=== PATIENT | male | born 1960 | race Caucasian/White ===

== ENCOUNTER 2018-02-06 15:04 | Emergency (ER) | payer OTHER ==
[2018-02-06] MEDS ORDERED: Alum Hydrox/Mag Hydrox/Simeth 15 ML, Lidocaine 2% 15 ML PO ONE ×2 (16:37)
--- NOTE | 2018-02-06 17:13 | EDM.PDOC ---
<Isaac Fox - Last Filed: 02/06/18 18:08> ED HPI GENERAL MEDICAL PROBLEM - General Chief Complaint: Abdominal Pain Stated Complaint: ABDOMINAL PAIN Time Seen by Provider: 02/06/18 16:00 Source of Information: Reports: Patient, Family History Limitations: Reports: No Limitations - History of Present Illness INITIAL COMMENTS - FREE TEXT/NARRATIVE: 57-year-old male who has had abdominal pain since last evening. The pain started fairly abruptly after eating supper, it is been persistent since with 2 episodes of emesis. He still has no appetite today but no fever. The pain is across the mid to lower abdomen, worse with movement. No radiation to the back. He has not had previous pain like this. He has a history of Pacheco's esophagus , the pain is usually higher in his chest when it's bothering him. This pain feels different. Patient also has a history of a "sports hernia" in the left groin, he has a surgical consultation in a few weeks but that does not seem to be tender at this time. Onset: Sudden (Started rather suddenly after supper last evening roughly 12 hours ago) Location: Reports: Abdomen Severity: Moderate Improves with: Reports: None Worsens with: Reports: Movement Associated Symptoms: Reports: No Other Symptoms - Related Data Allergies Allergy/AdvReac Type Severity Reaction Status Date / Time No Known Allergies Allergy Verified 02/06/18 16:03 Home Meds: Home Meds Omeprazole 1 tab PO DAILY 02/06/18 [History] Past Medical History Gastrointestinal History: Reports: GERD - Past Surgical History GI Surgical History: Reports: Appendectomy, Hernia, Inguinal Social & Family History - Tobacco Use Smoking Status *Q: Never Smoker ED ROS GENERAL - Review of Systems Review Of Systems: See Below Constitutional: Denies: Fever, Chills HEENT: Reports: No Symptoms Respiratory: Denies: Shortness of Breath Cardiovascular: Denies: Chest Pain GI/Abdominal: Reports: Abdominal Pain, Nausea, Vomiting : Reports: No Symptoms Skin: Reports: No Symptoms Neurological: Reports: No Symptoms ED EXAM, GI/ABD - Physical Exam Exam: See Below Exam Limited By: No Limitations General Appearance: Alert, No Apparent Distress Eyes: Bilateral: Normal Appearance Respiratory/Chest: No Respiratory Distress, Lungs Clear Cardiovascular: Regular Rate, Rhythm GI/Abdominal Exam: Soft, Guarding (Mild guarding is presentUmbilical area with mild rebound tenderness. His left inguinal hernia is palpable, easily reducible and is not tender.) Neurological: Alert, Oriented Psychiatric: Normal Affect, Normal Mood Skin Exam: Warm, Dry Course - Vital Signs Last Recorded V/S: Last Vital Signs Temp 98.6 F 02/06/18 16:11 Pulse 60 02/06/18 16:11 Resp 18 02/06/18 16:11 BP 142/77 H 02/06/18 16:11 Pulse Ox 97 02/06/18 16:11 - Orders/Labs/Meds Orders: Active Orders 24 hr Category Date Time Status Nasogastric Tube Management [Gastrointestinal Tube Mgmt Care 02/06/18 19:44 Active ] [RC] ASDIRECTED Abdomen 1V Upright [CR] Stat Exams 02/06/18 20:57 Taken Abdomen Pelvis w Cont [CT] Stat Exams 02/06/18 17:12 Taken Iopamidol [Isovue-300 (61%)] Med 02/06/18 17:30 Active 100 ml IV . DIRECTED Sodium Chloride 0.9% [Normal Saline] 100 ml Med 02/06/18 17:30 Active IV ASDIRECTED Sodium Chloride 0.9% [Saline Flush] Med 02/06/18 17:16 Active 10 ml FLUSH ASDIRECTED PRN Saline Lock Insert [OM.PC] Routine Oth 02/06/18 17:16 Ordered Medication Orders Sodium Chloride (Normal Saline) 100 mls @ 3 mls/sec IV ASDIRECTED ALEXIS Last Admin: 02/06/18 17:46 Dose: 3 mls/sec Iopamidol (Isovue-300 (61%)) 100 ml IV . DIRECTED ALEXIS Last Admin: 02/06/18 17:46 Dose: 100 ml Sodium Chloride (Saline Flush) 10 ml FLUSH ASDIRECTED PRN PRN Reason: Keep Vein Open Last Admin: 02/06/18 20:43 Dose: 10 ml Labs: Laboratory Tests 02/06/18 02/06/18 02/06/18 Range/Units 16:37 16:37 19:50 WBC 11.1 H (4.5-11.0) K/uL RBC 4.47 (4.30-5.90) M/uL Hgb 14.4 (12.0-15.0) g/dL Hct 41.3 (40.0-54.0) % MCV 92 (80-98) fL MCH 32 H (27-31) pg MCHC 35 (32-36) % Plt Count 241 (150-400) K/uL Neut % (Auto) 85 H (36-66) % Lymph % (Auto) 10 L (24-44) % Luna % (Auto) 5 (2-6) % Eos % (Auto) 0 L (2-4) % Baso % (Auto) 0 (0-1) % Sodium 147 (140-148) mmol/L Potassium 4.2 (3.6-5.2) mmol/L Chloride 109 H (100-108) mmol/L Carbon Dioxide 26 (21-32) mmol/L Anion Gap 16.2 H (5.0-14.0) mmol/L BUN 15 (7-18) mg/dL Creatinine 1.1 (0.8-1.3) mg/dL Est Cr Clr Drug Dosing 77.42 mL/min Estimated GFR (MDRD) > 60 (>60) Glucose 95 (74-106) mg/dL Lactic Acid 1.3 (0.4-2.0) mmol/L Calcium 9.0 (8.5-10.1) mg/dL Meds: Medications Generic Name Dose Route Start Last Admin Trade Name Freq PRN Reason Stop Dose Admin Sodium Chloride 100 mls @ 3 mls/sec 02/06/18 17:30 02/06/18 17:46 Normal Saline IV 3 mls/sec ASDIRECTED ALEXIS Administration Iopamidol 100 ml 02/06/18 17:30 02/06/18 17:46 Isovue-300 (61%) IV 100 ml . DIRECTED ALEXIS Administration Sodium Chloride 10 ml 02/06/18 17:16 02/06/18 20:43 Saline Flush FLUSH 10 ml ASDIRECTED PRN Administration Keep Vein Open Discontinued Medications Generic Name Dose Route Start Last Admin Trade Name Freq PRN Reason Stop Dose Admin Al Hydroxide/Mg Hydroxide 15 0 ml 02/06/18 16:37 02/06/18 16:49 ml/ Lidocaine HCl 15 ml PO 02/06/18 16:38 30 ml ONETIME ONE Administration Fentanyl 25 mcg 02/06/18 18:07 02/06/18 18:14 Sublimaze IVPUSH 02/06/18 18:08 25 mcg ONETIME ONE Administration Fentanyl 50 mcg 02/06/18 20:18 02/06/18 20:41 Sublimaze IVPUSH 02/06/18 20:19 50 mcg ONETIME ONE Administration Ondansetron HCl 4 mg 02/06/18 20:18 02/06/18 20:41 Zofran IVPUSH 02/06/18 20:19 4 mg ONETIME ONE Administration - Re-Assessments/Exams Free Text/Narrative Re-Assessment/Exam: 02/06/18 17:21 Patient was given a GI cocktail with no effect. CBC revealed a mildly elevated white count at 11,200, BMP was relatively normal other than a slightly elevated anion gap. A CT of the abdomen and pelvis was then obtained with IV contrast. Departure - Departure Disposition: DC/Tfer to [facility] 02 Clinical Impression: Hiatal hernia - Discharge Information Referrals: PCP,None [Primary Care Provider] - Forms: ED Department Discharge - My Orders Last 24 Hours: My Active Orders 02/06/18 19:44 Nasogastric Tube Management [Gastrointestinal Tube Mgmt] [RC] ASDIRECTED 02/06/18 20:57 Abdomen 1V Upright [CR] Stat - Assessment/Plan Last 24 Hours: My Active Orders 02/06/18 19:44 Nasogastric Tube Management [Gastrointestinal Tube Mgmt] [RC] ASDIRECTED 02/06/18 20:57 Abdomen 1V Upright [CR] Stat <RodrigorBrad - Last Filed: 02/06/18 21:24> Departure - Departure Time of Disposition: 21:24 Condition: Good - Assessment/Plan Plan: Assessment Acuity = acute Site and laterality = large hiatal hernia containing stomach and large bowel Etiology = unclear etiology Manifestations = abdominal pain, nausea, vomiting Location of injury = Home Lab values = CBC, CMP unremarkable lactic acid normal at 1.3 CT scan describes a large hiatal hernia above Plan Called discussed case with Dr. Grijalva cardiothoracic surgeon at the [facility] she kindly accepted the patient in transport he will be transported via EMS ground NG tube is in place further evaluation will start at the emergency department This note was dictated using [employer] voice recognition software please call with any questions on syntax or grammar.
[2018-02-06] MEDS ORDERED: Sodium Chloride 0.9% 10 ML Syringe FLUSH PRN (17:16)
[2018-02-06] MEDS ORDERED: Iopamidol 612 MG/ML 100 ML Bottle IV SCH (17:30)
[2018-02-06] MEDS ORDERED: Sodium Chloride 0.9% 100 ML IV SCH (17:30)
[2018-02-06] MEDS ORDERED: fentaNYL 100 MCG/2 ML SDV IVPUSH ONE ×2 (18:07→20:18)
[2018-02-06] MEDS ORDERED: Ondansetron 4 MG/2 ML SDV IVPUSH ONE (20:18)
--- NOTE | 2018-02-09 09:25 | CR ---
NG tube in the stomach. Side-port at GE junction. Would advance x 5 cm. Contrast from prior study. No nobstructive bowel gas pattern.
== END 2018-02-06 22:48 ==
LOC: JP.ED 15:04
DX: K44.9 Diaphragmatic hernia without obstruction or gangrene (principal); K21.9 Gastro-esophageal reflux disease without esophagitis
CPT/HCPCS: 36415; 74018; 74177; 80048; 83605; 85025; 96374; 96375; 96376; 99285; A9270; J2405; J3010; J7030; J7050; Q9967